=== PATIENT | female | born 1955 | race Caucasian/White ===

== ENCOUNTER → 2016-10-05 | Outpatient (CLI) | payer BC ==
[2016-10-05 14:27] LABS: Anion Gap 7 mmol/L; Blood Urea Nitrogen 20 mg/dL (7-17); Carbon Dioxide 31 mmol/L (22-30); Chloride 108 mmol/L (98-107); Glucose 85 mg/dL (74-99); Lithium 0.6 mmol/L; Non-African American GFR(MDRD) >60 (>60 ml/min/1.73 sqM); Potassium 4.3 mmol/L (3.5-5.1); Sodium 146 mmol/L (137-145)
== END | disposition home or self-care (01) ==
LOC: LABWHC1 13:32
PROVIDERS: ATTEND Psychiatry & Neurology Psychiatry
DX: F31.60 Bipolar disorder, current episode mixed, unspecified (principal)
CPT/HCPCS: 36415; 80048; 80178

== ENCOUNTER → 2017-02-02 | Outpatient (CLI) | payer BC ==
[2017-02-02 10:47] LABS: CH 32.2; CHCM 32.8; HCT 45.5 % (34.0-46.0); HDW 2.63; HGB 14.6 gm/dL (11.4-16.0); MCH 31.6 pg (25.0-35.0); MCHC 32.1 g/dL (31.0-37.0); MCV 98.5 fL (80.0-100.0); Mean Platelet Volume 7.8; RBC 4.62 m/uL (3.80-5.40); RDW 14.1 % (11.5-15.5); WBC 4.6 k/uL (3.8-10.6)
[2017-02-02 10:49] LABS: Appearance,Urine Clear (Clear); Bilirubin,Urine Negative (Negative); Glucose,Urine (UA) Negative (Negative); Ketones,Urine Negative (Negative); Leukocyte Esterase,Urine Negative (Negative); Nitrite,Urine Negative (Negative); Protein,Urine Negative (Negative); Specific Gravity,Urine 1.016 (1.001-1.035); UA Billing (MACRO vs. MICRO) CHEM; Urobilinogen,Urine <2.0 mg/dL (<2.0)
[2017-02-02 11:50] LABS: ALT 44 U/L (9-52); AST 24 U/L (14-36); Alkaline Phosphatase 78 U/L (38-126); Anion Gap 5 mmol/L; Blood Urea Nitrogen 23 mg/dL (7-17); Calcium 10.1 mg/dL (8.4-10.2); Carbon Dioxide 30 mmol/L (22-30); Chloride 111 mmol/L (98-107); Glucose 86 mg/dL (74-99); Lithium 0.7 mmol/L; Non-African American GFR(MDRD) >60 (>60 ml/min/1.73 sqM); Potassium 4.2 mmol/L (3.5-5.1); Sodium 146 mmol/L (137-145); Total Bilirubin 0.5 mg/dL (0.2-1.3)
== END | disposition home or self-care (01) ==
LOC: LABWHC1 10:21
PROVIDERS: ATTEND Psychiatry & Neurology Psychiatry
DX: E03.9 Hypothyroidism, unspecified (principal); F31.60 Bipolar disorder, current episode mixed, unspecified
CPT/HCPCS: 36415; 80053; 80178; 81003; 84439; 84443; 85027

== ENCOUNTER → 2017-07-11 | Outpatient (CLI) | payer BC ==
[2017-07-11 08:42] LABS: HCT 42.5 % (34.0-46.0); HGB 14.1 gm/dL (11.4-16.0); MCH 32.1 pg (25.0-35.0); MCHC 33.2 g/dL (31.0-37.0); MCV 96.7 fL (80.0-100.0); Mean Platelet Volume 6.8; Platelet Count 226 k/uL (150-450); RDW 12.4 % (11.5-15.5); WBC 6.3 k/uL (3.8-10.6)
[2017-07-11 09:40] LABS: Anion Gap 7 mmol/L; Blood Urea Nitrogen 18 mg/dL (7-17); Calcium 10.3 mg/dL (8.4-10.2); Carbon Dioxide 31 mmol/L (22-30); Chloride 107 mmol/L (98-107); Glucose 90 mg/dL (74-99); Lithium 1.1 mmol/L; Potassium 4.2 mmol/L (3.5-5.1); Sodium 145 mmol/L (137-145)
== END | disposition home or self-care (01) ==
LOC: LABWHC1 08:08
PROVIDERS: ATTEND Psychiatry & Neurology Psychiatry
DX: F31.60 Bipolar disorder, current episode mixed, unspecified (principal); Z79.899 Other long term (current) drug therapy
CPT/HCPCS: 36415; 80048; 80178; 85027

== ENCOUNTER → 2017-08-01 | Outpatient (CLI) | payer BC ==
[2017-08-01 11:07] LABS: Lithium 0.7 mmol/L
== END | disposition home or self-care (01) ==
LOC: LABWHC1 10:25
PROVIDERS: ATTEND Psychiatry & Neurology Psychiatry
DX: F31.60 Bipolar disorder, current episode mixed, unspecified (principal); Z79.899 Other long term (current) drug therapy
CPT/HCPCS: 36415; 80178; 82550

== ENCOUNTER → 2017-08-30 | Outpatient (CLI) | payer BC ==
--- NOTE | 2017-08-30 16:19 | CONS ---
CONSULTATION DATE OF SERVICE: 08/30/2017 62-year-old lady has been evaluated in [facility] for obstructive sleep apnea- hypopnea syndrome and problems with his sleep, including restless legs. Patient has history of obstructive sleep apnea first diagnosed about 15 years ago. She was treated with CPAP but started treatment about 6 months ago because she had some problem with her equipment leaks to the eyes. Presently her sleep schedule from around 11:00 p.m. until morning which has large variation of the time from 4:00 a.m. until noon. She does have problem with falling asleep secondary to a little bit of anxiety and also restless leg symptoms. She is taking ropinirole 1 mg at bedtime for that reason recently. She has snoring and wakes up from sleep 3 times with nocturia. In the morning she has difficulties to pay attention falling asleep during the day. Worry about her sleep, has problems with memory, concentration, diabetes, depression, anxiety, sexual dysfunction. [place] Sleepiness Scale is 13. PAST MEDICAL HISTORY: Positive for depression, bipolar, hypothyroidism, status post a gastric bypass surgery in 1996 with decreasing level of iron. PAST SURGICAL HISTORY: Gastric bypass 1996, sinus surgery. MEDICATIONS: Levothyroxine, lithium carbonate, lamotrigine, venlafaxine, tolterodine, ropinirole, trazodone, risperidone, vitamin D3 supplement, magnesium supplement, gentle iron bariatric form supplement, melatonin. ALLERGIES: PENICILLIN AND SULFA. SOCIAL HISTORY: Positive for smoking for about 2 packs a day for 10 years. Quit in 1995. Alcohol consumption none. FAMILY HISTORY: Stroke, arthritis, sinus headaches, lung problems, snoring, cancer, headaches, acid reflux, ulcers, mental illness, restless legs. REVIEW OF SYSTEMS: Multiple awakenings from sleep, tiredness and sleepiness during the day. PHYSICAL EXAM: GENERAL 62-year-old lady without distress. VITAL SIGNS BP 111/65, HR 74, RR 16, height 5 feet 5 inches, weight 165, BMI 27.4, neck is 13-1/2 inches in circumference. Temperature 98.2, oxygen saturation on room air 99%. HEENT PERRLA, EOMI, evaluation of oropharynx showed extremely low position of soft palate. Mallampati IV. HEENT mild tongue. NECK Supple, no JVD. Thyroid is not palpable. LUNGS Clear to percussion and to auscultation. Good air exchange. No wheezing or rhonchi. HEART S1, S2 regular. No murmurs, gallops, or rubs. ABDOMEN Soft and nontender. Bowel sounds are present. No organomegaly appreciated. EXTREMITIES No clubbing or cyanosis. 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 Cranial nerves 2 to 7 intact. There is no fasciculation or atrophy. noted. No focal deficits observed. IMPRESSION: 1. Snoring, history of obstructive sleep apnea for many years, multiple awakenings from sleep with nocturia, extremely low position of soft palate. Obstructive sleep apnea-hypopnea syndrome. 2. Hypothyroidism. 3. Restless legs syndrome. 4. Status post gastric bypass in 1996 with some iron deficiency, which could be precipitating factor in developing of restless legs syndrome. 5. Depression. 6. History of bipolar. 7. Status post sinus surgery. 8. Tinnitus. PLAN: 1. Polysomnography for evaluation of patient's breathing during sleep. 2. CPAP/BiPAP titration if sleep study confirms obstructive sleep apnea-hypopnea syndrome. 3. Preferable position during sleep on the side. 4. No driving if patient feels any sleepiness. Patient is aware of civil and criminal liability for unsafe driving. 5. I will see patient for follow up visit to explain results of testing and following plan. Thank you very much for referring this patient for consultation. Sincerely, Jose Luis Osborne MD, PhD, FAASM Diplomat of [place] [employer] [place] [employer] Team Member of [facility] [place] MMODL / IJN: [id number] /
== END | disposition home or self-care (01) ==
LOC: SLEEP 13:31
PROVIDERS: ATTEND Internal Medicine
DX: G47.33 Obstructive sleep apnea (adult) (pediatric) (principal); E03.9 Hypothyroidism, unspecified; G25.81 Restless legs syndrome; F32.9 Major depressive disorder, single episode, unspecified; H93.19 Tinnitus, unspecified ear; Z86.59 Personal history of other mental and behavioral disorders; Z98.890 Other specified postprocedural states; Z88.0 Allergy status to penicillin; Z88.1 Allergy status to other antibiotic agents; Z87.891 Personal history of nicotine dependence; Z79.899 Other long term (current) drug therapy; Z98.84 Bariatric surgery status; Z99.89 Dependence on other enabling machines and devices
CPT/HCPCS: 99211

== ENCOUNTER → 2017-10-09 | Outpatient (CLI) | payer BC ==
[2017-10-09 09:33] LABS: Lithium 0.5 mmol/L
== END | disposition home or self-care (01) ==
LOC: LABWHC1 08:06
PROVIDERS: ATTEND Psychiatry & Neurology Psychiatry
DX: E03.9 Hypothyroidism, unspecified (principal); F31.60 Bipolar disorder, current episode mixed, unspecified; Z79.899 Other long term (current) drug therapy
CPT/HCPCS: 36415; 80178; 84443

== ENCOUNTER → 2017-12-31 | Outpatient (CLI) | payer BC, MEDICARE ==
--- NOTE | 2018-01-01 09:56 | MM ---
Reason for exam: screening (asymptomatic). Last mammogram was performed 2 years and 8 months ago. History: Patient is postmenopausal. Family history of breast cancer in paternal cousin and breast cancer in paternal aunt. Took estrogen for 8 years. Took progesterone for 8 years. Physical Findings: A clinical breast exam by your physician is recommended on an annual basis and results should be correlated with mammographic findings. MG 3D Screening Mammo W/Cad Bilateral CC and MLO view(s) were taken. Prior study comparison: May 17, 2015, bilateral MG screening mammo w CAD. December 07, 2011, CAD bilateral diagnostic mammogram. The breast tissue is heterogeneously dense. This may lower the sensitivity of mammography. No significant changes when compared with prior studies. ASSESSMENT: Benign, BI-RAD 2 RECOMMENDATION: Routine screening mammogram of both breasts in 1 year.
== END | disposition home or self-care (01) ==
LOC: RADMAMWWP 10:02
PROVIDERS: ATTEND Family Medicine
DX: Z12.31 Encounter for screening mammogram for malignant neoplasm of breast (principal)
CPT/HCPCS: 77063; 77067

== ENCOUNTER → 2018-03-14 | Outpatient (CLI) | payer MEDICARE, BC ==
[2018-03-14 09:13] LABS: Appearance,Urine Clear (Clear); Bilirubin,Urine Negative (Negative); Blood,Urine Negative (Negative); Color,Urine Yellow; Glucose,Urine (UA) Negative (Negative); Ketones,Urine Negative (Negative); Leukocyte Esterase,Urine Negative (Negative); Nitrite,Urine Negative (Negative); Protein,Urine Negative (Negative); Specific Gravity,Urine 1.019 (1.001-1.035); Urobilinogen,Urine <2.0 mg/dL (<2.0)
[2018-03-14 09:15] LABS: HCT 43.5 % (34.0-46.0); HGB 13.8 gm/dL (11.4-16.0); MCH 31.5 pg (25.0-35.0); MCHC 31.8 g/dL (31.0-37.0); Mean Platelet Volume 6.9; Platelet Count 196 k/uL (150-450); RBC 4.39 m/uL (3.80-5.40); RDW 12.8 % (11.5-15.5); WBC 5.4 k/uL (3.8-10.6)
[2018-03-14 09:32] LABS: Lithium 0.9 mmol/L
== END | disposition home or self-care (01) ==
LOC: LABWHC1 08:23
PROVIDERS: ATTEND Psychiatry & Neurology Psychiatry
DX: F31.60 Bipolar disorder, current episode mixed, unspecified (principal); Z79.899 Other long term (current) drug therapy
CPT/HCPCS: 36415; 80178; 81003; 84443; 85027

== ENCOUNTER → 2018-05-22 | Outpatient (CLI) | payer MEDICARE ==
[2018-05-22 17:58] LABS: Hemoglobin A1C 4.9 % (4.0-6.0)
[2018-05-22 19:10] LABS: Lithium 0.5 mmol/L (1.0-1.2)
== END | disposition home or self-care (01) ==
LOC: LABWHC1 10:35
PROVIDERS: ATTEND Psychiatry & Neurology Psychiatry
DX: F31.60 Bipolar disorder, current episode mixed, unspecified (principal); Z79.899 Other long term (current) drug therapy
CPT/HCPCS: 36415; 80178; 83036; 84460

== ENCOUNTER → 2018-08-10 | Outpatient (CLI) | payer MEDICARE ==
[2018-08-10 10:52] LABS: HCT 46.3 % (34.0-46.0); HGB 14.7 gm/dL (11.4-16.0); MCH 30.6 pg (25.0-35.0); MCHC 31.7 g/dL (31.0-37.0); MCV 96.6 fL (80.0-100.0); Mean Platelet Volume 7.3; Platelet Count 211 k/uL (150-450); RBC 4.79 m/uL (3.80-5.40); RDW 12.9 % (11.5-15.5); WBC 6.2 k/uL (3.8-10.6)
== END | disposition home or self-care (01) ==
LOC: LABWHC1 09:06
PROVIDERS: ATTEND Psychiatry & Neurology Psychiatry
DX: F31.60 Bipolar disorder, current episode mixed, unspecified (principal); Z79.899 Other long term (current) drug therapy
CPT/HCPCS: 36415; 80178; 85027

== ENCOUNTER → 2018-09-18 | Outpatient (CLI) | payer MEDICARE ==
[2018-09-18 16:51] LABS: Lithium 0.2 mmol/L (1.0-1.2)
[2018-09-18 17:30] LABS: Hemoglobin A1C 5.1 % (4.0-6.0)
== END | disposition home or self-care (01) ==
LOC: LABWHC1 09:31
PROVIDERS: ATTEND Psychiatry & Neurology Psychiatry
DX: F31.60 Bipolar disorder, current episode mixed, unspecified (principal); Z79.899 Other long term (current) drug therapy
CPT/HCPCS: 36415; 80178; 82565; 83036; 84460; 84520

== ENCOUNTER → 2018-10-24 | Outpatient (CLI) | payer MEDICARE ==
[2018-10-24 09:22] LABS: HCT 47.2 % (34.0-46.0); HGB 15.2 gm/dL (11.4-16.0); MCH 30.6 pg (25.0-35.0); MCHC 32.1 g/dL (31.0-37.0); MCV 95.4 fL (80.0-100.0); Mean Platelet Volume 7.3; Platelet Count 230 k/uL (150-450); RBC 4.95 m/uL (3.80-5.40); RDW 13.3 % (11.5-15.5); WBC 6.3 k/uL (3.8-10.6)
[2018-10-24 16:16] LABS: Albumin 4.1 g/dL (3.80-4.90); Albumin/Globulin Ratio 2.41 (1.60-3.17); Globulin 1.7 g/dL (1.6-3.3); LDL Cholesterol,Calculated 134.2 mg/dL (0.0-131.0); Lithium 0.3 mmol/L (1.0-1.2); Potassium 4.3 mmol/L (3.5-5.5); Total Bilirubin 0.4 mg/dL (0.3-1.2); Total Protein 5.8 g/dL (6.2-8.2); VLDL Calculation 22.8 mg/dL (5.00-40.00)
== END | disposition home or self-care (01) ==
LOC: LABWHC1 07:52
PROVIDERS: ATTEND Psychiatry & Neurology Psychiatry
DX: E03.9 Hypothyroidism, unspecified (principal); F31.60 Bipolar disorder, current episode mixed, unspecified; Z79.899 Other long term (current) drug therapy
CPT/HCPCS: 36415; 80053; 80061; 80178; 85027

== ENCOUNTER → 2019-01-13 | Outpatient (CLI) | payer MEDICARE ==
[2019-01-13 16:17] LABS: ALT 56 U/L (8-44); AST 39 U/L (13-35); African American GFR (CKD) 77.2 (60.0-200.0); Albumin/Globulin Ratio 2.22 (1.60-3.17); Alkaline Phosphatase 94 U/L (41-126); Bilirubin, Conjugated <0.20 mg/dL (0.20-0.40); Globulin 1.8 g/dL (1.6-3.3); Lithium 0.4 mmol/L (1.0-1.2); Total Bilirubin 0.3 mg/dL (0.3-1.2); Total Protein 5.8 g/dL (6.2-8.2)
[2019-01-13 16:55] LABS: Hepatitis A Antibody IgM Non-Reactive (Non-Reactive); Hepatitis B Core IgM Non-Reactive (Non-Reactive)
== END | disposition home or self-care (01) ==
LOC: LABWHC1 09:53
PROVIDERS: ATTEND Family Medicine
DX: E07.9 Disorder of thyroid, unspecified (principal); R94.5 Abnormal results of liver function studies; Z51.81 Encounter for therapeutic drug level monitoring; Z79.899 Other long term (current) drug therapy
CPT/HCPCS: 36415; 80074; 80076; 80178; 82565; 84443; 84481; 84520

== ENCOUNTER → 2019-02-27 | Outpatient (CLI) | payer MEDICARE ==
[2019-02-27 11:26] LABS: HCT 46.6 % (34.0-46.0); HGB 14.7 gm/dL (11.4-16.0); MCH 30.1 pg (25.0-35.0); MCHC 31.6 g/dL (31.0-37.0); MCV 95.2 fL (80.0-100.0); Mean Platelet Volume 6.7; Platelet Count 259 k/uL (150-450); RBC 4.89 m/uL (3.80-5.40); RDW 13.2 % (11.5-15.5); WBC 4.8 k/uL (3.8-10.6)
[2019-02-27 16:58] LABS: African American GFR (CKD) 77.2 (60.0-200.0); Albumin/Globulin Ratio 2.35 (1.60-3.17); Anion Gap 7.7 mmol/L (4.00-12.00); BUN/Creat Ratio 37.78 Ratio (12.00-20.00); Calcium 9.8 mg/dL (8.7-10.3); Carbon Dioxide 28.3 mmol/L (21.6-31.8); Chol/HDL Ratio 2.56; Globulin 1.7 g/dL (1.6-3.3); Potassium 4.4 mmol/L (3.5-5.5); Total Bilirubin 0.3 mg/dL (0.2-1.2); Total Protein 5.7 g/dL (6.2-8.2)
== END | disposition home or self-care (01) ==
LOC: LABWHC1 10:19
PROVIDERS: ATTEND Psychiatry & Neurology Psychiatry
DX: F31.60 Bipolar disorder, current episode mixed, unspecified (principal); Z79.899 Other long term (current) drug therapy
CPT/HCPCS: 36415; 80053; 80061; 83036; 85027

== ENCOUNTER → 2019-03-26 | Outpatient (CLI) | payer MEDICARE ==
--- NOTE | 2019-03-26 10:07 | US ---
EXAMINATION TYPE: US liver DATE OF EXAM: 03/26/2019 COMPARISON: US dated 09/04/2012 CLINICAL HISTORY: R94.5 Abnormal Lfts. Abnormal LFT's EXAM MEASUREMENTS: Liver Length: 13.8 cm CBD: 1.3 cm Right Kidney: 9.5 x 4.0 x 4.5 cm Pancreas: 3mm duct, as seen on previous Liver: Appeared wnl Gallbladder: Surgically absent Evidence for sonographic Montez's sign: No CBD: Dilated for post nicole Right Kidney: wnl, lower pole obscured by overlying bowel gas There is no ascites. IMPRESSION: Postop changes. Chronic dilation of the common bile duct likely due to postcholecystectom y change. Limitations to the exam.
== END | disposition home or self-care (01) ==
LOC: RADUSWWP 08:57
PROVIDERS: ATTEND Psychiatry & Neurology Psychiatry
DX: R94.5 Abnormal results of liver function studies (principal); Z98.890 Other specified postprocedural states
CPT/HCPCS: 76705

== ENCOUNTER → 2019-04-02 | Outpatient (CLI) | payer MEDICARE ==
[2019-04-02 11:43] VITALS: BMI 26.2
== END | disposition home or self-care (01) ==
LOC: DBWHC3 09:46
PROVIDERS: ATTEND Psychiatry & Neurology Psychiatry
DX: E78.5 Hyperlipidemia, unspecified (principal)
CPT/HCPCS: 97802

== ENCOUNTER → 2019-04-09 | Outpatient (CLI) | payer MEDICARE ==
--- NOTE | 2019-04-10 04:38 | XR ---
EXAMINATION TYPE: XR lumbar spine 2 or 3V, XR Hip Complete 2 views LT DATE OF EXAM: 04/09/2019 COMPARISON: NONE HISTORY: 64-year-old female M54.9. Right hip pain. FINDINGS: Lumbar spine: Marked degenerated S-shaped scoliotic curvature of the lumbar spine. The scoliosis extends up into th e visualized lower thoracic spine. Staple lines from prior bowel surgery in the left mid abdomen. The degree of curvature limits assessment of the lateral view. Unable to adequately exclude a compressio n deformity of the T12 vertebral body. Hypertrophic facet arthropathy throughout. Trace grade 1 retro listhesis at L3-L4 and additional grade 1 retrolistheses at L1-L2 and L2-L3. Moderate degenerative di sc disease throughout. Left hip: Mild degenerative spurring at the left hip with mild superolateral joint space narrowing. 2 retained needles are present along the left femoral neurovascular bundle. Needle fragments measure up to 1.7 c m long. No acute fracture, subluxation, or dislocation. IMPRESSION: 1. Lumbar spine: Marked degenerated S-shaped scoliosis. The degree of curvature limits assessment of the lateral view. Unable to exclude a compression deformity of the T12 vertebral body. Moderate degen erative disc disease and hypertrophic facet arthropathy throughout with grade 1 retrolisthesis from L 1 through L4 levels. 2. Left hip: Mild OA. 2 retained needle fragments measuring up to 1.7 cm long.
== END | disposition home or self-care (01) ==
LOC: WWCWWP 16:12
PROVIDERS: ATTEND Psychiatry & Neurology Psychiatry
DX: M43.16 Spondylolisthesis, lumbar region (principal); M51.36 Other intervertebral disc degeneration, lumbar region; M46.96 Unspecified inflammatory spondylopathy, lumbar region; M41.86 Other forms of scoliosis, lumbar region; M16.12 Unilateral primary osteoarthritis, left hip; Z18.89 Other specified retained foreign body fragments
CPT/HCPCS: 72100; 73502

== ENCOUNTER → 2019-04-16 | Outpatient (CLI) | payer MEDICARE ==
--- NOTE | 2019-04-16 16:06 | CT ---
EXAMINATION TYPE: CT hip LT wo con DATE OF EXAM: 04/16/2019 COMPARISON: Left hip x-ray April 09, 2019. HISTORY: left hip pain, possible foreign body. Metallic fragments per order. Possible needle in hip f rom old injury. Abnormal x-ray. CT DLP: 483.4 mGycm Automated exposure control for dose reduction was used. FINDINGS: Confirmation of linear metallic foreign body near level of hip joint within the posterior gluteal mus cles either reflecting single bent lesion or 2 adjacent lesions measuring 1.3 cm in length respective ly consistent with retained needle fragments seen axial images 39 through 48 and sagittal images 38 t hrough 40. There is mild axial joint space loss without significant acetabular spurring redemonstrated. Multiple left thigh is preserved. No suspicious groin adenopathy or hernia. IMPRESSION: As above. Better localization of retained needle fragments.
== END | disposition home or self-care (01) ==
LOC: RADCTMAIN 15:29
PROVIDERS: ATTEND Family Medicine
DX: Z18.10 Retained metal fragments, unspecified (principal)

== ENCOUNTER → 2019-05-24 | Outpatient (CLI) | payer MEDICARE ==
[2019-05-24 16:54] LABS: ALT 86 U/L (8-44); AST 44 U/L (13-35); Albumin/Globulin Ratio 2.29 (1.60-3.17); Alkaline Phosphatase 106 U/L (41-126); BUN/Creat Ratio 28.75 Ratio (12.00-20.00); Bilirubin, Conjugated <0.20 mg/dL (0.20-0.40); Calcium 9.9 mg/dL (8.7-10.3); Carbon Dioxide 31.5 mmol/L (21.6-31.8); Chloride 113 mmol/L (96-109); Chol/HDL Ratio 2.36; Cholesterol 163 mg/dL (0-200); Globulin 1.7 g/dL (1.6-3.3); Glucose 83 mg/dL (70-110); LDL Cholesterol,Calculated 77.6 mg/dL (0.0-131.0); Lithium 0.3 mmol/L (0.5-1.2); Non-African American GFR(CKD) 76.8 (60.0-200.0); Potassium 4.1 mmol/L (3.5-5.5); Sodium 147 mmol/L (135-145); Total Bilirubin 0.4 mg/dL (0.3-1.2); Total Protein 5.6 g/dL (6.2-8.2)
== END | disposition home or self-care (01) ==
LOC: LABWHC1 09:58
PROVIDERS: ATTEND Psychiatry & Neurology Psychiatry
DX: F31.60 Bipolar disorder, current episode mixed, unspecified (principal); Z79.899 Other long term (current) drug therapy
CPT/HCPCS: 36415; 80048; 80061; 80076; 80178

== ENCOUNTER → 2019-06-19 | Outpatient (CLI) | payer MEDICARE ==
[2019-06-19 16:20] LABS: ALT 111 U/L (8-44); AST 53 U/L (13-35); Albumin/Globulin Ratio 2.44 (1.60-3.17); Alkaline Phosphatase 117 U/L (41-126); Bilirubin, Conjugated <0.20 mg/dL (0.20-0.40); Globulin 1.6 g/dL (1.6-3.3); Lithium 0.3 mmol/L (0.5-1.2); Total Bilirubin 0.4 mg/dL (0.3-1.2); Total Protein 5.5 g/dL (6.2-8.2)
[2019-06-19 16:55] LABS: HIV 1 AB Non-Reactive (Non-Reactive); HIV 2 AB Non-Reactive (Non-Reactive); HIV AB P24 Non-Reactive (Non-Reactive); HIV P24 AG Non-Reactive (Non-Reactive)
== END | disposition home or self-care (01) ==
LOC: LABWHC1 11:00
PROVIDERS: ATTEND Psychiatry & Neurology Psychiatry
DX: R94.5 Abnormal results of liver function studies (principal)
CPT/HCPCS: 36415; 80076; 80178; 87390

== ENCOUNTER → 2019-08-14 | Outpatient (CLI) | payer MEDICARE | END | disposition home or self-care (01) | LOC: LABWHC1 16:02 | PROVIDERS: ATTEND Psychiatry & Neurology Psychiatry | DX: R73.9 Hyperglycemia, unspecified (principal) | CPT/HCPCS: 36415; 83036 ==

== ENCOUNTER → 2019-12-22 | Outpatient (CLI) | payer MEDICARE ==
[2019-12-22 10:37] LABS: HCT 45.5 % (34.0-46.0); Hypochromasia Slight; MCH 28.8 pg (25.0-35.0); MCHC 30.8 g/dL (31.0-37.0); MCV 93.5 fL (80.0-100.0); Platelet Count 226 k/uL (150-450); RBC 4.87 m/uL (3.80-5.40); RDW 14.2 % (11.5-15.5); WBC 4.7 k/uL (3.8-10.6)
[2019-12-22 16:07] LABS: ALT 54 U/L (8-44); Glucose 85 mg/dL (70-110)
== END | disposition home or self-care (01) ==
LOC: LABWHC1 09:59
PROVIDERS: ATTEND Psychiatry & Neurology Psychiatry
DX: F31.60 Bipolar disorder, current episode mixed, unspecified (principal); Z79.899 Other long term (current) drug therapy
CPT/HCPCS: 36415; 82947; 84460; 85027

== ENCOUNTER 2020-02-24 07:47 | Day surgery (SDC) | payer MEDICARE ==
[2020-02-19 13:13] VITALS: BMI 27.3
[~2020-02-24 07:47] MED LIST: LIDOCAINE 1% (10MG/ML) FOR IV START INTRADERMA PRN; MIDAZOLAM 2 MG/2 ML VIAL IV PRN
[2020-02-24 08:09] VITALS: TEMP 97.1
[2020-02-24] MEDS: LACTATED RINGERS 1,000 ML IV SCH ×2 (08:20→09:53)
[2020-02-24] MEDS ORDERED: LIDOCAINE 1% INJ 10MG/ML (20 ML MDV) ONE (08:58)
[2020-02-24] MEDS ORDERED: PROPOFOL 10 MG/ML 20 ML VIAL IV ONE (08:58)
--- NOTE | 2020-02-24 09:26 | P.PCN ---
Date of Procedure: 02/24/20 Description of Procedure: BRIEF HISTORY: Patient is a 65-year-old female presented for outpatient EGD for evaluation of GERD. Patient reports a long-standing history of GERD. Last upper endoscopy was 5 years ago. She currently takes Nexium daily and Tums as needed for breakthrough reflux. PROCEDURE PERFORMED: Esophagogastroduodenoscopy with biopsies. PREOPERATIVE DIAGNOSIS: GERD. ESTIMATED BLOOD LOSS: Minimal. IV sedation per anesthesia. PROCEDURE: After informed consent was obtained, the patient was brought into the endoscopy unit. IV sedation was administered by Anesthesia under continuous monitoring. Initially the Olympus GIF-190 video endoscope was inserted into the mouth. Esophagus intubated without any difficulty. It was gradually advanced into the gastric remnant and then through the anastomotic site and into the small bowel. The patient's anatomy was consistent with her history of Tomas-en-Y gastric bypass. The small bowel appeared intact and biopsies of the small bowel were taken. The anastomotic site was then examined as the scope was withdrawn through the anastomosis and into the stomach. The anastomotic site appeared intact with no ulcerations noted. The gastric remnant also appeared intact with no ulcers or severe irritation noted. Biopsies of the thoracic remnant were taken. The scope was then withdrawn into the esophagus. The GE junction was located at 35 cm from the incisors. Biopsies of the GE junction were taken. The rest of the esophagus appear normal. There were no erosions or ulcerations seen. The patient tolerated the procedure well. IMPRESSION: 1. Anatomy consistent with prior Tomas-en-Y surgery. 2. Biopsies taken of the small bowel (the jejunum), gastric remnant and GE junction. RECOMMENDATIONS: The findings of this examination were discussed with the patient. Okay to resume diet. Okay to resume medications. Continue Nexium therapy. Reflux lifestyle modifications including smaller more frequent meals, sitting upright after meals, not eating 2-3 hours prior to bed discussed with the patient. Await pathology from biopsies.
[2020-02-24 10:14] VITALS: BP 100/62; PULSE 60; RESP 14
== END 2020-02-24 10:32 ==
LOC: ORWHC2ENDO 07:47
PROVIDERS: ATTEND Internal Medicine
DX: K29.50 Unspecified chronic gastritis without bleeding (principal); K21.9 Gastro-esophageal reflux disease without esophagitis; G47.33 Obstructive sleep apnea (adult) (pediatric); E11.9 Type 2 diabetes mellitus without complications; E07.9 Disorder of thyroid, unspecified; G25.81 Restless legs syndrome; Z88.0 Allergy status to penicillin; Z88.2 Allergy status to sulfonamides; Z79.899 Other long term (current) drug therapy; Z90.49 Acquired absence of other specified parts of digestive tract; Z90.710 Acquired absence of both cervix and uterus; Z98.51 Tubal ligation status; Z98.890 Other specified postprocedural states; Z99.89 Dependence on other enabling machines and devices; Z87.891 Personal history of nicotine dependence; Z98.84 Bariatric surgery status
CPT/HCPCS: 88305; 43239; J2001; J2704

== ENCOUNTER → 2020-04-28 | Outpatient (CLI) | payer MEDICARE ==
[2020-04-28 17:11] LABS: Chol/HDL Ratio 2.75; Lithium 0.4 mmol/L (0.5-1.2)
[2020-04-28 18:33] LABS: Hemoglobin A1C 5.5 % (4.0-6.0)
== END | disposition home or self-care (01) ==
LOC: LABWHC1 09:56
PROVIDERS: ATTEND Psychiatry & Neurology Psychiatry
DX: F31.60 Bipolar disorder, current episode mixed, unspecified (principal); Z79.899 Other long term (current) drug therapy
CPT/HCPCS: 36415; 80061; 80178; 83036; 84450; 84460

== ENCOUNTER → 2020-06-28 | Outpatient (CLI) | payer MEDICARE ==
--- NOTE | 2020-06-29 14:06 | MM ---
Reason for exam: screening (asymptomatic). Last mammogram was performed 2 years and 6 months ago. History: Patient is postmenopausal. Family history of breast cancer in paternal cousin and breast cancer in paternal aunt. Took estrogen for 8 years. Took progesterone for 8 years. Physical Findings: A clinical breast exam by your physician is recommended on an annual basis and results should be correlated with mammographic findings. MG Screening Mammo w CAD Bilateral CC and MLO view(s) were taken. Prior study comparison: December 31, 2017, bilateral MG 3d screening mammo w/cad. May 17, 2015, bilateral MG screening mammo w CAD. The breast tissue is heterogeneously dense. This may lower the sensitivity of mammography. Developing asymmetry left outer middle breast. ASSESSMENT: Incomplete: need additional imaging evaluation, BI-RAD 0 RECOMMENDATION: Special view mammogram of the left breast. If lesion persists on supplemental views, image directed ultrasound is recommended. [facility] will attempt to contact patient to return for supplemental views and ultrasound if indicated.
== END | disposition home or self-care (01) ==
LOC: RADMAMWWP 14:06
PROVIDERS: ATTEND Family Medicine
DX: Z12.31 Encounter for screening mammogram for malignant neoplasm of breast (principal)
CPT/HCPCS: 77067

== ENCOUNTER → 2020-07-08 | Outpatient (CLI) | payer MEDICARE ==
--- NOTE | 2020-07-09 11:12 | MM ---
Reason for exam: additional evaluation requested from abnormal screening. Last mammogram was performed less than 1 month ago. History: Patient is postmenopausal. Family history of breast cancer in paternal cousin and breast cancer in paternal aunt. Physical Findings: Nurse did not find any significant physical abnormalities on exam. MG Work Up Mamm w CAD LT Spot compression CC, spot compression MLO, and ML view(s) were taken of the left breast. Prior study comparison: June 28, 2020, bilateral MG screening mammo w CAD. December 31, 2017, bilateral MG 3d screening mammo w/cad. Finding: There are two (4mm and 7mm) equal density (isodense), indistinct irregular masses located 3.5-4 cm from the nipple in the upper outer quadrant, middle position of the left breast. Persistent on CC compression. New finding since June 28, 2020 and December 31, 2017. These results were verbally communicated with the patient and result sheet given to the patient on 07/08/20. ASSESSMENT: Incomplete: need additional imaging evaluation, BI-RAD 0 RECOMMENDATION: Ultrasound of the left breast.
--- NOTE | 2020-07-09 11:15 | USB ---
Reason for exam: additional evaluation requested from abnormal screening. History: Patient is postmenopausal. Family history of breast cancer in paternal cousin and breast cancer in paternal aunt. US Breast Workup Limited LT Left limited breast ultrasound including focal area of concern, retroareolar and axilla demonstrates a 2 x 1 x 2mm oval, cystic lesion too small to characterize at 4 o'clock and a 3 x 2 x 3mm oval, cystic lesion too small to characterize at 4 o'clock. These results were verbally communicated with the patient and result sheet given to the patient on 07/08/20. ASSESSMENT: Probably benign, BI-RAD 3 RECOMMENDATION: Follow-up diagnostic mammogram and ultrasound of the left breast in 3 months. (3-6 months)
== END | disposition home or self-care (01) ==
LOC: RADMAMWWP 14:52
PROVIDERS: ATTEND Family Medicine
DX: R92.8 Other abnormal and inconclusive findings on diagnostic imaging of breast (principal)
CPT/HCPCS: 77065

== ENCOUNTER → 2020-07-12 | Outpatient (CLI) | payer MEDICARE ==
[2020-07-12 20:35] LABS: Lithium 0.3 mmol/L (0.5-1.2)
== END | disposition home or self-care (01) ==
LOC: LABWHC1 10:46
PROVIDERS: ATTEND Psychiatry & Neurology Psychiatry
DX: F31.60 Bipolar disorder, current episode mixed, unspecified (principal); Z79.899 Other long term (current) drug therapy
CPT/HCPCS: 36415; 80178; 82947

== ENCOUNTER → 2020-11-04 | Outpatient (CLI) | payer MEDICARE ==
--- NOTE | 2020-11-04 14:49 | MM ---
Reason for exam: follow-up at short interval from prior study. Last mammogram was performed 4 months ago. History: Patient is postmenopausal. Family history of breast cancer in paternal cousin and breast cancer in paternal aunt. Took hormonal contraceptives for 5 years. Physical Findings: Nurse did not find any significant physical abnormalities on exam. MG 3D Diag Mammo W/Cad LT CC, MLO, and spot compression CC view(s) were taken of the left breast. Prior study comparison: July 08, 2020, left breast MG work up mamm w CAD LT. June 28, 2020, bilateral MG screening mammo w CAD. The breast tissue is heterogeneously dense. This may lower the sensitivity of mammography. Finding: There is a 7-8 mm indistinct oval mass in the upper outer quadrant, middle position of the left breast. There is a chronic nodularity in the left breast. These results were verbally communicated with the patient and result sheet given to the patient on 11/04/20. ASSESSMENT: Incomplete: need additional imaging evaluation, BI-RAD 0 RECOMMENDATION: Ultrasound of the left breast.
--- NOTE | 2020-11-04 14:51 | USB ---
Reason for exam: follow-up at short interval from prior study. History: Patient is postmenopausal. Family history of breast cancer in paternal cousin and breast cancer in paternal aunt. Took hormonal contraceptives for 5 years. US Breast Limited LT Left limited breast ultrasound including focal area of concern, retroareolar and axilla demonstrates a 3 x 2 x 3mm oval, cystic lesion at 4 o'clock, unchanged from previous, a 5mm oval, benign lymph node at the axilla tail and a 3 x 3 x 4mm oval, cystic lesion too small to characterize at 2 o'clock. These results were verbally communicated with the patient and result sheet given to the patient on 11/04/20. ASSESSMENT: Probably benign, BI-RAD 3 RECOMMENDATION: Follow-up diagnostic mammogram of the left breast in 6 months.
== END | disposition home or self-care (01) ==
LOC: RADMAMWWP 12:53
PROVIDERS: ATTEND Family Medicine
DX: N63.21 Unspecified lump in the left breast, upper outer quadrant (principal); N60.02 Solitary cyst of left breast; Z78.0 Asymptomatic menopausal state; Z80.3 Family history of malignant neoplasm of breast
CPT/HCPCS: 77065; 76642; G0279; 77061

== ENCOUNTER → 2020-11-25 | Outpatient (CLI) | payer MEDICARE ==
[2020-11-25 09:49] LABS: Appearance,Urine Clear (Clear); Bacteria,Urine Occasional /hpf; Bilirubin,Urine Negative (Negative); Blood,Urine Negative (Negative); Color,Urine Dark Yellow; Glucose,Urine (UA) Negative (Negative); Hyaline Casts,Urine 29 /lpf (0-2); Ketones,Urine Negative (Negative); Leukocyte Esterase,Urine Small (Negative); Mucus,Urine Many /hpf; Nitrite,Urine Negative (Negative); Protein,Urine Trace (Negative); RBC,Urine 3 /hpf (0-5); Specific Gravity,Urine 1.031 (1.001-1.035); Squamous Epithelial Cell,Urine 2 /hpf (0-4); WBC,Urine 2 /hpf (0-5)
== END | disposition home or self-care (01) ==
LOC: LABWHC1 08:30
PROVIDERS: ATTEND Psychiatry & Neurology Psychiatry
DX: F31.60 Bipolar disorder, current episode mixed, unspecified (principal); Z79.899 Other long term (current) drug therapy
CPT/HCPCS: 36415; 80175; 80178; 81001

== ENCOUNTER → 2020-12-23 | Outpatient (CLI) | payer MEDICARE ==
[2020-12-23 17:48] LABS: African American GFR (CKD) 76.7 (60.0-200.0); Albumin 4.1 g/dL (3.80-4.90); Albumin/Globulin Ratio 2.16 (1.60-3.17); Anion Gap 4.3 mmol/L (4.00-12.00); BUN/Creat Ratio 28.89 Ratio (12.00-20.00); Calcium 9.4 mg/dL (8.7-10.3); Carbon Dioxide 28.7 mmol/L (21.6-31.8); Globulin 1.9 g/dL (1.6-3.3); Lithium 0.3 mmol/L (0.5-1.2); Non-African American GFR(CKD) 66.2 (60.0-200.0); Potassium 4.4 mmol/L (3.5-5.5); Total Bilirubin 0.1 mg/dL (0.3-1.2)
== END | disposition home or self-care (01) ==
LOC: LABWHC1 09:20
PROVIDERS: ATTEND Psychiatry & Neurology Psychiatry
DX: E03.9 Hypothyroidism, unspecified (principal); F31.60 Bipolar disorder, current episode mixed, unspecified; Z79.899 Other long term (current) drug therapy
CPT/HCPCS: 36415; 80053; 80178; 84439; 84443

== ENCOUNTER → 2021-03-09 | Outpatient (CLI) | payer MEDICARE | END | disposition home or self-care (01) | LOC: LABWHC1 11:20 | PROVIDERS: ATTEND Psychiatry & Neurology Neurology | DX: E61.1 Iron deficiency (principal); G25.81 Restless legs syndrome; G25.3 Myoclonus; Z98.84 Bariatric surgery status | CPT/HCPCS: 36415; 82390; 82525; 82728; 83540; 83735 ==

== ENCOUNTER → 2021-06-28 | Outpatient (CLI) | payer MEDICARE ==
--- NOTE | 2021-06-28 10:43 | MM ---
Reason for exam: follow-up at short interval from prior study. Last mammogram was performed 8 months ago. History: Patient is postmenopausal. Family history of breast cancer in paternal cousin and breast cancer in paternal aunt. Took hormonal contraceptives for 5 years. Physical Findings: Nurse did not find any significant physical abnormalities on exam. MG Diagnostic Mammo w CAD RUTHY Bilateral CC and MLO view(s) were taken. Prior study comparison: November 04, 2020, left breast MG 3d diag mammo w/cad LT. July 08, 2020, left breast MG work up mamm w CAD LT. There are scattered fibroglandular densities. Focal asymmetry central lateral left breast unchanged for nearly a year. These results were verbally communicated with the patient and result sheet given to the patient on 06/28/21. ASSESSMENT: Incomplete: need additional imaging evaluation, BI-RAD 0 RECOMMENDATION: Ultrasound of the left breast.
--- NOTE | 2021-06-28 10:44 | USB ---
Reason for exam: additional evaluation requested from abnormal screening. History: Patient is postmenopausal. Family history of breast cancer in paternal cousin and breast cancer in paternal aunt. Took hormonal contraceptives for 5 years. US Breast Limited LT Left limited breast ultrasound including focal area of concern, retroareolar and axilla demonstrates a 1.3 x 1.4 x 0.4cm benign lymph node at the axilla. Scanned 12-6 o'clock. These results were verbally communicated with the patient and result sheet given to the patient on 06/28/21. ASSESSMENT: Probably benign, BI-RAD 3 RECOMMENDATION: Follow-up diagnostic mammogram of both breasts in 1 year.
== END | disposition home or self-care (01) ==
LOC: RADUSWWP 07:42
PROVIDERS: ATTEND Family Medicine
DX: N64.89 Other specified disorders of breast (principal); R92.2 Inconclusive mammogram; Z78.0 Asymptomatic menopausal state; Z80.3 Family history of malignant neoplasm of breast
CPT/HCPCS: 77066

== ENCOUNTER → 2022-11-01 | Outpatient (CLI) | payer MEDICARE ==
--- NOTE | 2022-11-01 15:26 | P.SLEEP ---
History of Present Illness DATE: 11/01/2022 CONSULTATION/NEW PATIENT EVALUATION HISTORY OF PRESENT ILLNESS/SLEEP-WAKE EVALUATION: 67-year-old lady had been ev aluated in the sleep center for obstructive sleep apnea hypopnea syndrome. Patient has history of obstructive sleep apnea diagnosed is in our institution before. Last sleep study done in 2018 which showed mild obstructive sleep apnea with apnea-hypopnea index 8.8 by results of home sleep apnea test. Patient was recommended to use CPAP therapy, but she did not do that. SLEEP SCHEDULE: Usually sleep schedule from 10 PM to 10-12 AM. FALLING ASLEEP: Occasionally patient has problems with falling asleep, has TV set and bedroom. DURING SLEEP: Patient sleeps in different positions with snoring, opening mouth, episodes of stop breathing during the sleep. Patient wakes up from sleep 3 times with nocturia. Positive history of kicking during the night. No history of hypnogogical hallucinations, sleep paralysis, or cataplexy. DURING THE DAY/WAKE STATE: In the morning patient wake up tired, falling asleep during the day, has problems with concentration, memory, depression, anxiety. [place] sleepiness scale is 7. Patient may take 1 nap afternoon. PAST MEDICAL HISTORY: Depression, hypothyroidism, nightmares, anemia. PAST SURGICAL HISTORY: Gastric bypass surgery in 1996, sinuses surgery. MEDICATIONS: Levothyroxine 25 g once a day, omeprazole 80 mg once a day, alprazolam, the tumor 300 mg once a day, lamotrigine 200 mg once a day, prazosin 2 mg, gabapentin, venlafaxine. SOCIAL HISTORY: Positive history of smoking for about 10 years, quit about 40 years ago, alcohol consumption none at the present time. FAMILY HISTORY: Cancer, arthritis. REVIEW OF SYSTEMS: Snoring, multiple awakenings from sleep. No fevers. No double vision. No recent chest pain. No shortness of breath. No abdominal pain. No bleeding episodes. No blood in urine. No seizure episodes. PHYSICAL EXAMINATION: GENERAL: A pleasant patient without any distress. VITAL SIGNS: BP 117/80, HR 74, RR 16, weight 183.0 pounds, height 5 foot 6 inches, body mass index 29.5, temperature 96.3, oxygen saturation at room air 97%. HEENT: PERRLA, EOMI. Evaluation of oropharynx showed tongue protrudes midline, low position of soft palate Mallampati 3. NECK: Supple. No JVD. Thyroid is not palpable. 14 inches in circumference. LUNGS: Clear to percussion and to auscultation. Good air exchange. No wheezing or rhonchi. HEART: S1, S2 regular. No murmurs, gallops or rubs. ABDOMEN: Soft and nontender. Bowel sounds are present. No organomegaly appreciated. EXTREMITIES: No clubbing or cyanosis. 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 Cranial nerves 2 to 7 intact. There is no fasciculation or atrophy noted. No focal deficits observed. ASSESSMENT: 1. Snoring, multiple awakenings from sleep, small oropharyngeal airspace, history of obstructive sleep apnea in the past. Obstructive sleep apnea- hypopnea syndrome. 2.. Periodic limb movements. 3. Depression. 4. History of anemia. 5 hypothyroidism. 6 . Nightmares. 7. Status post gastric bypass in 1996. 8. Status post sinus surgery. PLAN: 1. Polysomnography for evaluation of patient's breathing during sleep. 2. CPAP/BiPAP titration if sleep study confirms obstructive sleep apnea- hypopnea syndrome. 3. Preferable position during sleep on the side. 4. No driving if patient feels any sleepiness. Patient is aware of civil and criminal liability for unsafe driving. 5. Sleep hygiene with regular sleep time for at least 7.5-8 hours. 6. Watching weight. Thank you very much for referring this patient for consultation. Sincerely, Jose Luis Osborne MD, PhD, FAASM. Diplomat of [place] [employer], Sleep Medicine Board by [place] [employer] [place] [employer] [place] [employer] [facility] [place] Past Medical History Past Medical History: GERD/Reflux, Thyroid Disorder Additional Past Medical History / Comment(s): Restless leg syndrome-arms and shoulders jerk at times also, hand tremors, sleep apnea with cpap use. History of Any Multi-Drug Resistant Organisms: None Reported Past Surgical History: Bariatric Surgery, Bladder Surgery, Cholecystectomy, Hysterectomy, Tubal Ligation Additional Past Surgical History / Comment(s): BARIATRIC SX. COLONOSCOPY/EGD. PILONIDAL CYSTECTOMY Past Anesthesia/Blood Transfusion Reactions: No Reported Reaction Smoking Status: Former smoker - Past Family History Father Family Medical History: Cancer Medications and Allergies Home Medications Medication Instructions Recorded Confirmed Type Venlafaxine HCl ER [Effexor Xr] 150 mg PO DAILY 07/30/14 02/19/20 History clonazePAM [KlonoPIN] 0.5 mg PO DAILY PRN 07/30/14 02/19/20 History traZODone HCL [Desyrel] 50 mg PO HS PRN 07/30/14 02/19/20 History Cholecalciferol [Vitamin D3 (25 2,000 unit PO DAILY 02/19/20 02/19/20 History Mcg = 1000 Iu)] Esomeprazole Magnesium [NexIUM 20 mg PO DAILY 02/19/20 02/19/20 History 24Hr] Ferrous Sulfate [Feosol] 325 mg PO DAILY 02/19/20 02/19/20 History Levothyroxine Sodium [Levoxyl] 75 mcg PO DAILY 02/19/20 02/19/20 History Liothyronine Sodium [Cytomel] 5 mcg PO DAILY 02/19/20 02/19/20 History Ethel Carbonate [Ethel 300 mg PO HS 02/19/20 02/19/20 History Carbonate ER] Lurasidone [Latuda] 40 mg PO DAILY 02/19/20 02/19/20 History Mirabegron [Myrbetriq] 25 mg PO DAILY 02/19/20 02/19/20 History Multivitamins, Thera [Multivitamin 1 tab PO DAILY 02/19/20 02/19/20 History (formulary)] Etta-3/Dha/Epa/Fish Oil/Krill 1 each PO DAILY 02/19/20 02/19/20 History [Megared Advanced 4-in-1 Ex Str] Pramipexole Di-HCl [Mirapex] 0.75 mg PO TID 02/19/20 02/19/20 History Vitamin B Complex 1 each PO DAILY 02/19/20 02/19/20 History lamoTRIgine [LaMICtal] 200 mg PO DAILY 02/19/20 02/19/20 History polyethylene glycoL 3350 [Miralax] 17 gm PO DAILY 02/19/20 02/19/20 History Allergies Allergy/AdvReac Type Severity Reaction Status Date / Time Penicillins Allergy Unknown Verified 02/24/20 08:06 Childhood Sulfa (Sulfonamide Allergy Rash/Hives Verified 02/24/20 08:06 Antibiotics) Sleep Note - Sleep Note Sleep Note: Temperature: Pulse Rate: Respiratory Rate: Blood Pressure: SpO2: Height: Weight: BMI: Neck Circumference:
== END ==
LOC: SLEEP 14:13
PROVIDERS: ATTEND Internal Medicine
DX: G47.33 Obstructive sleep apnea (adult) (pediatric) (principal); G47.61 Periodic limb movement disorder; F32.A Depression, unspecified; E03.9 Hypothyroidism, unspecified; Z98.84 Bariatric surgery status; J34.2 Deviated nasal septum; Z99.89 Dependence on other enabling machines and devices; D64.9 Anemia, unspecified; Z79.890 Hormone replacement therapy; Z88.0 Allergy status to penicillin; Z88.2 Allergy status to sulfonamides; Z87.891 Personal history of nicotine dependence
CPT/HCPCS: 99211

== ENCOUNTER → 2022-11-17 | Outpatient (CLI) | payer MEDICARE ==
--- NOTE | 2022-11-20 18:57 | MM ---
Reason for Exam: Screening (asymptomatic). Last mammogram was performed 1 year(s) and 5 month(s) ago. Patient History: Menarche at age 8. First Full-Term at age 19. Hysterectomy at age 59. Postmenopausal. Patient used Hormonal Contraceptives for 5 years. Paternal cousin had breast cancer, bilateral, age 45. Paternal aunt had breast cancer, bilateral, age 53. Risk Values: Rica 5 year model risk: 1.7%. NCI Lifetime model risk: 5.2%. Prior Study Comparison: 07/08/2020 Left Diagnostic Mammogram, [facility]. 11/04/2020 Left Diagnostic Mammogram, [facility]. 06/28/2021 Bilateral Diagnostic Mammogram, [facility]. Tissue Density: There are scattered fibroglandular densities. Findings: Analyzed By CAD. There is a circumscribed round mass within the central aspect of the left breast that has been fluctuating. It was seen back in 2020 but appears to be new/larger from the more recent prior. An underlying cyst is suspected. Nodular asymmetric density central outer aspect of the right breast anterior to middle depth not well seen on the MLO view. Further evaluation is recommended. Overall Assessment: Incomplete: need additional imaging evaluation, BI-RAD 0 Management: Special View Mammogram of the right breast. Diagnostic Breast Ultrasound of the left breast. Additional views right breast for the asymmetric density seen on the CC view. Targeted ultrasound left breast to the 3:00 position for suspected underlying cyst. [facility] will attempt to contact patient to return for supplemental views and ultrasound if indicated. Electronically signed and approved by: Kymberly Gamble M.D. Radiologist
== END | disposition home or self-care (01) ==
LOC: RADMAMWWP 15:59
PROVIDERS: ATTEND Family Medicine
DX: Z12.31 Encounter for screening mammogram for malignant neoplasm of breast (principal); Z78.0 Asymptomatic menopausal state; Z80.3 Family history of malignant neoplasm of breast
CPT/HCPCS: 77063; 77067

== ENCOUNTER → 2022-11-24 | Outpatient (CLI) | payer MEDICARE ==
--- NOTE | 2022-11-24 11:05 | MM ---
Reason for Exam: Additional evaluation requested from abnormal screening. Last screening mammogram was performed less than 1 month ago. Patient History: Menarche at age 8. First Full-Term at age 19. Hysterectomy at age 59. Postmenopausal. Patient used Hormonal Contraceptives for 5 years. Paternal cousin had breast cancer, bilateral, age 45. Paternal aunt had breast cancer, bilateral, age 53. Risk Values: Rica 5 year model risk: 1.7%. NCI Lifetime model risk: 5.2%. Tissue Density: Right: There are scattered fibroglandular densities. Findings: Analyzed By CAD. A roughly 6 mm oval circumscribed lesion 2 to 3 cm distance from nipple right breast slightly upper outer aspect does not go away and additional views. Overall Assessment: Incomplete: need additional imaging evaluation, BI-RAD 0 Management: Diagnostic Breast Ultrasound of the right breast. Targeted ultrasound. Patient should continue monthly self-breast exams. A clinical breast exam by your physician is recommended on an annual basis. This exam should not preclude additional follow-up of suspicious palpable abnormalities. Note on Rica scores and lifetime risk: 1. A Rica score greater than 3% is considered moderate risk. If this is the case, consider specialist referral to assess eligibility for a risk reducing agent. 2. If overall lifetime risk for the development of breast cancer is 20% or higher, the patient may qualify for future screening with alternating mammogram and breast MRI. Electronically signed and approved by: Marvin Montesinos M.D.
--- NOTE | 2022-11-24 11:07 | USB ---
Reason for Exam: Additional evaluation requested from abnormal screening. Patient History: Menarche at age 8. First Full-Term at age 19. Hysterectomy at age 59. Postmenopausal. Patient used Hormonal Contraceptives for 5 years. Paternal cousin had breast cancer, bilateral, age 45. Paternal aunt had breast cancer, bilateral, age 53. Risk Values: Rica 5 year model risk: 1.7%. NCI Lifetime model risk: 5.2%. Technique: Method: Targeted. Prior Study Comparison: 11/04/2020 Left Diagnostic Mammogram, [facility]. 06/28/2021 Bilateral Diagnostic Mammogram, [facility]. 11/17/2022 Bilateral MG 3D screening mammo w/cad, [facility]. Findings: The upper outer quadrant of both breasts, the axilla of both breasts and the retroareolar of both breasts were scanned. Targeted ultrasound bilaterally. In the right breast there is 4 x 3 x 4 mm oval anechoic lesion favoring benign thin-walled cyst at 10:00 position 3 cm distance from nipple likely corresponding to the mammogram abnormality. In the left breast at 12:00 position 3 cm distance from nipple there is a 4 x 7 x 4 mm oval anechoic avascular lesion felt to reflect simple cysts felt to correspond to mammogram abnormality. No ultrasound evidence for malignancy. Overall Assessment: Benign, BI-RAD 2 Management: Screening Mammogram of both breasts in 1 year. Return to routine follow-up. Results were given to the patient verbally at the time of exam. Electronically signed and approved by: Marvin Montesinos M.D.
== END | disposition home or self-care (01) ==
LOC: RADMAMWWP 10:15
PROVIDERS: ATTEND Family Medicine
DX: R92.8 Other abnormal and inconclusive findings on diagnostic imaging of breast (principal); Z78.0 Asymptomatic menopausal state; Z80.3 Family history of malignant neoplasm of breast
CPT/HCPCS: 77065; 76642; G0279; 77061

== ENCOUNTER 2022-12-06 19:34 | Outpatient (CLI) | payer MEDICARE | END 2022-12-07 23:59 | LOC: 3 N SLEEP 19:34 | PROVIDERS: ATTEND Internal Medicine | DX: G47.33 Obstructive sleep apnea (adult) (pediatric) (principal); Z88.2 Allergy status to sulfonamides; Z87.891 Personal history of nicotine dependence | CPT/HCPCS: 95810 ==

== ENCOUNTER 2022-12-26 12:15 | Day surgery (SDC) | payer MEDICARE ==
[2022-12-21 16:06] VITALS: BMI 30.3
[~2022-12-26 12:15] MED LIST changes: +LACTATED RINGERS 1,000 ML IV SCH; -MIDAZOLAM 2 MG/2 ML VIAL IV PRN
[2022-12-26 12:37] VITALS: RESP 16; TEMP 98.4
[2022-12-26] MEDS ORDERED: PROPOFOL 10 MG/ML 20 ML VIAL IV ONE (13:54)
--- NOTE | 2022-12-26 14:15 | P.PCN ---
Date of Procedure: 12/26/22 Procedure(s) Performed: BRIEF HISTORY: Patient is a 67-year-old pleasant white female scheduled for an elective colonoscopy as a part of screening for colon cancer. PROCEDURE PERFORMED: Colonoscopy with snare polypectomy and Endo Clip placement. PREOPERATIVE DIAGNOSIS: Screening for colon cancer. IV sedation per Anesthesia. PROCEDURE: After informed consent was obtained, the patient, was brought into the endoscopy unit. IV sedation was administered by Anesthesia under continuous monitoring. Digital rectal examination was normal. Initially the Olympus CF-160 flexible video colonoscope was then inserted in the rectum, gradually advanced into the cecum without any difficulty. Careful examination was performed as the scope was gradually being withdrawn. Ileocecal valve and the appendiceal orifice were visualized and appeared normal. Prep was excellent. Mucosa of the cecum, ascending colon, transverse colon, descending colon, sigmoid colon, and rectum appeared normal. At 18 cm from the anal was there was a 1.5 cm broad-based polyp that was removed by snare polypectomy followed by some oozing and hence an Endo Clip was placed with good hemostasis Retroflexion was performed in the rectum and no lesions were seen. The patient tolerated the procedure well. IMPRESSION: 1.5 cm broad-based rectosigmoid polyp status post snare polypectomy followed by Endo Clip placement Rest of the colon appeared normal. RECOMMENDATIONS: Findings of this examination were discussed with the patient as well as her family. She was advised to follow with the biopsy results and have a repeat colonoscopy in 3 years.
[2022-12-26 14:38] VITALS: BP 111/75; PULSE 63
== END 2022-12-26 14:50 | disposition home or self-care (01) ==
LOC: ORWHC2ENDO 12:15
PROVIDERS: ATTEND Internal Medicine Gastroenterology
DX: Z12.11 Encounter for screening for malignant neoplasm of colon (principal); D12.7 Benign neoplasm of rectosigmoid junction; G47.33 Obstructive sleep apnea (adult) (pediatric); E03.9 Hypothyroidism, unspecified; F41.9 Anxiety disorder, unspecified; F32.A Depression, unspecified; K21.9 Gastro-esophageal reflux disease without esophagitis; G25.81 Restless legs syndrome; Z79.890 Hormone replacement therapy; Z79.899 Other long term (current) drug therapy; Z88.2 Allergy status to sulfonamides; Z88.0 Allergy status to penicillin
CPT/HCPCS: 88305; 45385; J2704

== ENCOUNTER → 2023-08-29 | Outpatient (CLI) | payer MEDICARE ==
[~2023-08-29] MED LIST changes: -LACTATED RINGERS 1,000 ML IV SCH; -LIDOCAINE 1% (10MG/ML) FOR IV START INTRADERMA PRN; +REGADENOSON 0.4 MG/5 ML SYRINGE IV ONE
--- NOTE | 2023-08-29 11:18 | CA ---
Lexiscan Nuclear Stress Test Report Name: Crys Gaona Exam Date: 08/29/2023 10:00 Exam Location: [place] Stress Ht (in): 66 Wt (lb): 195 BSA: 1.98 Ordering Phys: Burton Collins MD Referring Phys: Burton Collins MD Technologist: MILLER Age: 68 Gender: F : 1955 Procedure CPT: Indications: I20.89 ANGINA ICD-10 Codes: Patient History: Shortness of breath and tired Medications: Meds past 24 hrs: Pretest Chest Pain: STRESS TEST Lexiscan Protocol Exercise Duration (min:sec): 01:[address] Depressions (mm): Angina Score: Hernandez Score: Resting HR (bpm): 60 Peak HR (bpm): 89 Resting BP (mmHg): 128 / 89 Peak BP (mmHg): 126 / 79 MPHR: 150 Target HR: 128 % MPHR: 59 METS: 1.0 Total Dose: Peak Dose: Atropine: Double Product: 66975 BP Response: Stress Termination: INFUSION COMPLETE Stress Symptoms: CHEST PRESSURE Stress Summary: ECG ANALYSIS Resting ECG: Normal sinus rhythm normal axis normal intervals Stress ECG: Patient was given intravenous Lexiscan as a protocol did not have chest pain or diagnostic ST segment depression CONCLUSIONS Negative stress test by EKG criteria Cardiolite portion of the stress test will be reported separately Dr. Avery Segura MD (Electronically Signed) Final Date: 29 August 2023 11:17
--- NOTE | 2023-08-29 12:14 | NM ---
EXAMINATION TYPE: NM stress lexiscan cardiolite DATE OF EXAM: 08/29/2023 COMPARISON: NONE CLINICAL INDICATION: Female, 68 years old with history of I20.89 ANGINA; TECHNIQUE: After the intravenous administration of 10.3 mCi Tc 99m Sestamibi - Cardiolite resting SP ECT images acquired 80 minutes post injection. The patient received 0.4mg Lexiscan, 26.2 mCi Tc 99m Sestamibi - Stress images obtained [address] injection FINDINGS: Review of stress and rest SPECT images demonstrates no distinct perfusion abnormality. Gated analysi s shows normal wall motion with an estimated left ventricular ejection fraction of 73 %. TID this ca lculated at 0.74, within normal limits. IMPRESSION: No scintigraphic evidence for inducible ischemia.
== END | disposition home or self-care (01) ==
LOC: RADNMMAIN 07:59
PROVIDERS: ATTEND Family Medicine
DX: I20.89 Other forms of angina pectoris (principal); R06.02 Shortness of breath
CPT/HCPCS: 93017; 78452; A9500; J2785

== ENCOUNTER → 2024-10-17 | Outpatient (CLI) | payer MEDICARE ==
--- NOTE | 2024-10-20 08:07 | MM ---
Reason for Exam: Screening (asymptomatic). Last mammogram was performed 1 year(s) and 11 month(s) ago. Patient History: Menarche at age 8. First Full-Term at age 19. Hysterectomy at age 59. Postmenopausal. Patient used Hormonal Contraceptives for 5 years. Paternal cousin had breast cancer, bilateral, age 45. Paternal aunt had breast cancer, bilateral, age 53. Risk Values: Rica 5 year model risk: 1.7%. NCI Lifetime model risk: 4.7%. Prior Study Comparison: 06/28/2021 Bilateral Diagnostic Mammogram, [facility]. 11/17/2022 Bilateral MG 3D screening mammo w/cad, [facility]. 11/24/2022 Right MG 3D work up w/cad RT, [facility]. Tissue Density: The breasts are heterogeneously dense, which may obscure small masses. Findings: Analyzed By CAD. There is no suspicious group of microcalcifications or new suspicious mass in either breast. Overall Assessment: Benign, BI-RAD 2 Management: Screening Mammogram of both breasts in 1 year. . Patient should continue monthly self-breast exams. A clinical breast exam by your physician is recommended on an annual basis. This exam should not preclude additional follow-up of suspicious palpable abnormalities. Note on Rica scores and lifetime risk: 1. A Rica score greater than 3% is considered moderate risk. If this is the case, consider specialist referral to assess eligibility for a risk reducing agent. 2. If overall lifetime risk for the development of breast cancer is 20% or higher, the patient may qualify for future screening with alternating mammogram and breast MRI. [facility], , 10/20/2024 8:03 AM. Electronically signed and approved by: Davi Herrera M.D. Radiologis
== END | disposition home or self-care (01) ==
LOC: RADMAMWWP 15:40
PROVIDERS: ATTEND Family Medicine
DX: Z12.31 Encounter for screening mammogram for malignant neoplasm of breast (principal); R92.333 Mammographic heterogeneous density, bilateral breasts; Z78.0 Asymptomatic menopausal state; Z92.0 Personal history of contraception; Z80.3 Family history of malignant neoplasm of breast
CPT/HCPCS: 77063; 77067